=== PATIENT | male | born 1940 | race Caucasian/White ===

== ENCOUNTER 2025-03-28 08:37 | Day surgery (SDC) | payer MEDICARE ==
[~2025-03-28] VITALS: Ht 170.2 cm; Wt 94.0 kg
[~2025-03-28 08:37] MED LIST: ALBU90OI61 INH; ATOR10 PO; Balanced Salt Epinephrine Irrigation Solution 500 mL IR SCH; LISI20 PO; Moxifloxacin HCL 0.5 MG/0.1 ML 0.4MLSYR RIGHTEYE SCH; NS 500 ML IV ONE; OMEP20ER PO; PHENYLEPHRINE\\TROPICAMIDE\\TETRACAINE OPHTHALMIC DILATING SOLN RIGHTEYE PRN; Povidone-Iodine 450 DROP/30 ML Solution ONE; Povidone-Iodine 450 DROP/30 ML Solution RIGHTEYE SCH; Tetracaine HCl/Pf 0.5% Opth Soln 4 ml ONE
[2025-03-28] MEDS ORDERED: AMLODIPINE BES2.5 MG PO (09:31)
[2025-03-28] MEDS ORDERED: TAMSULOSIN HCL0.4 M1 PO (09:31)
[2025-03-28] MEDS ORDERED: METOPROLOL TART5010 PO (09:31)
[2025-03-28] MEDS ORDERED: METFORMIN HCL500 M3 PO (09:32)
[2025-03-28] MEDS ORDERED: ATOR40TA PO (09:32)
[2025-03-28] MEDS ORDERED: NS 500 ML IV ONE (09:36)
[2025-03-28] MEDS ORDERED: Midazolam HCl 1MG / ML 2ML Vial ONE (09:59)
[2025-03-28] MEDS ORDERED: Tetracaine HCl 0.5% Opth Soln 15 ml RIGHTEYE ONE (10:01)
[2025-03-28] MEDS ORDERED: HydrALAZINE HCl 20 MG / ML 1ML Vial ONE (10:05)
[2025-03-28 10:30] VITALS: BP 149/94
--- NOTE | 2025-03-28 11:04 | NUR ---
03/28/25 1104 Kari Pittman 1050 INSTRUCTED PT TO FOLLOW UP WITH PCP REGARDING ELEVATED BP IN OR, PER ANES AND WAS GIVEN HYDRALAZINE 10 MG IV PER ANES. PT VERBALIZED UNDERSTANDING.
== END 2025-03-28 10:50 | disposition home or self-care (01) ==
LOC: ORSCSDS 08:37
PROVIDERS: Student in an Organized Health Care Education/Training Program
PROC: 08RJ3JZ Replacement of Right Lens with Synthetic Substitute, Percutaneous Approach (ICD-10-PCS; principal; 2025-03-28 10:00)
DX: E11.36 Type 2 diabetes mellitus with diabetic cataract (principal); H25.813 Combined forms of age-related cataract, bilateral; H21.81 Floppy iris syndrome; I10 Essential (primary) hypertension; E78.00 Pure hypercholesterolemia, unspecified; I48.91 Unspecified atrial fibrillation; G47.33 Obstructive sleep apnea (adult) (pediatric); N40.0 Benign prostatic hyperplasia without lower urinary tract symptoms; E66.9 Obesity, unspecified; Z68.32 Body mass index [BMI] 32.0-32.9, adult; Z79.82 Long term (current) use of aspirin; Z79.84 Long term (current) use of oral hypoglycemic drugs; Z79.899 Other long term (current) drug therapy; Z87.891 Personal history of nicotine dependence
CPT/HCPCS: 82947; J0360; J2250; J7040; V2632

== ENCOUNTER 2025-04-04 06:13 | Day surgery (SDC) | payer MEDICARE ==
[~2025-04-04] VITALS: Ht 170.2 cm; Wt 94.8 kg
[~2025-04-04 06:13] MED LIST changes: +AMLODIPINE BES2.5 MG PO; +ATOR40TA PO; +METFORMIN HCL500 M3 PO; +METOPROLOL TART5010 PO; +Moxifloxacin HCL 0.5 MG/0.1 ML 0.4MLSYR LEFTEYE SCH; -Moxifloxacin HCL 0.5 MG/0.1 ML 0.4MLSYR RIGHTEYE SCH; +PHENYLEPHRINE\\TROPICAMIDE\\TETRACAINE OPHTHALMIC DILATING SOLN LEFTEYE PRN; -PHENYLEPHRINE\\TROPICAMIDE\\TETRACAINE OPHTHALMIC DILATING SOLN RIGHTEYE PRN; -Povidone-Iodine 450 DROP/30 ML Solution RIGHTEYE SCH; +TAMSULOSIN HCL0.4 M1 PO
[2025-04-04] MEDS ORDERED: NS 500 ML IV ONE (06:39)
--- NOTE | 2025-04-04 06:40 | NUR ---
04/04/25 0640 Maria Isabel Zarate CALL LIGHT WITHIN REACH. EYE DROPS IN [place] 0639.
[2025-04-04] MEDS ORDERED: FentaNYL Citrate 50 MCG/ML 2 ML Injection ONE (06:53)
--- NOTE | 2025-04-04 07:46 | NUR ---
04/04/[address] IN SPEAKING WITH PT. ANSWERS ALL QUESTIONS
[2025-04-04] MEDS ORDERED: Ondansetron HCl 2 MG / ML 2ML Vial ONE (08:06)
[2025-04-04] MEDS ORDERED: HydrALAZINE HCl 20 MG / ML 1ML Vial ONE (08:06)
[2025-04-04 08:34] VITALS: BP 175/82
== END 2025-04-04 08:43 | disposition home or self-care (01) ==
LOC: ORSCSDS 06:13
PROVIDERS: Student in an Organized Health Care Education/Training Program
PROC: 08RK3JZ Replacement of Left Lens with Synthetic Substitute, Percutaneous Approach (ICD-10-PCS; principal; 2025-04-04 07:30)
DX: E11.36 Type 2 diabetes mellitus with diabetic cataract (principal); H25.812 Combined forms of age-related cataract, left eye; Z96.1 Presence of intraocular lens; I10 Essential (primary) hypertension; E78.00 Pure hypercholesterolemia, unspecified; I25.810 Atherosclerosis of coronary artery bypass graft(s) without angina pectoris; N40.0 Benign prostatic hyperplasia without lower urinary tract symptoms; G47.33 Obstructive sleep apnea (adult) (pediatric); K21.9 Gastro-esophageal reflux disease without esophagitis; E66.9 Obesity, unspecified; Z68.32 Body mass index [BMI] 32.0-32.9, adult; Z79.84 Long term (current) use of oral hypoglycemic drugs; Z79.899 Other long term (current) drug therapy; Z87.891 Personal history of nicotine dependence
CPT/HCPCS: 82947; J0360; J2003; J2405; J3010; J7040; V2632